=== PATIENT | female | born 1980 | race Caucasian/White ===

== ENCOUNTER 2018-04-04 14:37 | Emergency (ER) | payer OTHER ==
[~2018-04-04] VITALS: Ht 175.3 cm; Wt 58.1 kg
[~2018-04-04 14:37] MED LIST: ASPIRIN325 PO; GABAPENTIN 100100 MG PO; HYDROCODON-ACE1 EAC7 PO; NAPROSYN500 MG PO; NOHOMEMEDICATIONS; NORCO 5-325 TA1 EACH PO; OXYCODONE HCL 55 MG PO; OXYCONTIN10 M1 PO; PRENATAL; TOBREX3.5 GM OP
[2018-04-04] MEDS ORDERED: ALEVE220 MG PO (14:46)
[2018-04-04 15:17] LABS: ABSOLUTE EOSINOPHILS 0.1 thou/uL (0.0-0.7); ABSOLUTE LYMPHOCYTES 1.8 thou/uL (0.8-5.3); ABSOLUTE MONOCYTES 0.4 thou/uL (0.0-1.2); ABSOLUTE NEUTROPHILS 4.2 thou/uL (1.6-8.1); BASOPHILS 0.3 %; EOSINOPHILS 1.2 %; HEMATOCRIT 40.4 % (37.0-47.0); HEMOGLOBIN 13.6 gm/dL (12.0-15.0); LYMPHOCYTES 27.1 %; MCH 32.3 pg (26.0-34.0); MCHC 33.7 g/dL (28.0-37.0); MCV 95.8 fL (80.0-100.0); MONOCYTES 6.5 %; MPV 9.8 fl. (7.2-11.1); NUCLEATED RBCS 0 /100WBC; PLATELET COUNT* 283 thou/uL (150-400); POLYS 64.9 %; RBC 4.22 mil/uL (4.20-5.00); RDW-CV 13.1 % (10.5-14.5); WBC 6.5 thou/uL (4.0-11.0)
[2018-04-04 15:37] LABS: ANION GAP 12 mmol/L (7-16); BUN 12 mg/dL (7-18); CALCIUM 9.1 mg/dL (8.5-10.1); CHLORIDE 98 mmol/L (98-107); CO2 29 mmol/L (21-32); CREATININE 0.7 mg/dL (0.6-1.3); GLUCOSE 102 mg/dL (70-99); POTASSIUM 3.3 mmol/L (3.5-5.1); SODIUM 139 mmol/L (136-145)
[2018-04-04 15:47] LABS: ALBUMIN 4.7 g/dL (3.4-5.0); ALKALINE PHOSPHATASE 63 U/L (46-116); SGOT 21 U/L (15-37); SGPT 28 U/L (30-65); TOTAL BILIRUBIN 0.4 mg/dL (<0.1-1.0); TOTAL PROTEIN 8.1 g/dL (6.4-8.2); TROPONIN-I LEVEL <0.06 ng/mL (<0.06)
[2018-04-04 16:01] LABS: URINE BILIRUBIN NEGATIVE (Negative); URINE BLOOD NEGATIVE (Negative); URINE CLARITY CLEAR; URINE COLOR STRAW; URINE GLUCOSE-RANDOM NEGATIVE (Negative); URINE KETONES NEGATIVE (Negative); URINE LEUKOCYTES-REFLEX NEGATIVE (Negative); URINE NITRITE-REFLEX NEGATIVE (Negative); URINE PROTEIN NEGATIVE (Negative); URINE SPECIFIC GRAVITY >= 1.030 (1.005-1.030); URINE UROBILINOGEN 0.2 E.U./dl (0.2-1.0)
[2018-04-04 16:07] LABS: AMP/METHAMP Negative (Negative); BARBITURATES Negative (Negative); BENZODIAZEPINES Negative (Negative); COCAINE Negative (Negative); METHADONE Negative (Negative); OPIATES POSITIVE (Negative); PCP POSITIVE (Negative); THC Negative (Negative)
[2018-04-04 17:14] VITALS: BP 126/87
--- NOTE | 2018-04-05 12:44 | EKG ---
[place] [address] ELECTROCARDIOGRAM REPORT Name: TIMOTHY RODRÍGUEZ Room: [facility]#: [id number] Admission: 04/04/18 Attend Phys: Discharge: 04/04/18 Date of : 84 Report #: [id number] THIS REPORT FOR: //name// [facility] ED Test Date: 2018-04-04 Test Time: 15:17:10 Pat Name: TIMOTHY RODRÍGUEZ Department: Room: Gender: F Registration Clerk: Zurdo MITCHELL : 1980 Requested By: Aries Hastings Order Number: [id number] MD: Heath Wood Measurements Intervals [place] Rate: 101 P: 65 RI: 168 QRS: 43 QRSD: 97 T: 30 QT: 339 QTc: 440 Interpretive Statements Sinus tachycardia Compared to ECG 11/20/2014 09:57:49 Sinus rhythm no longer present Sinus arrhythmia no longer present Electronically Signed On 04-05-2018 12:44:51 BUSINESS OPERATIONS COORDINATOR by Heath Wood [email or web address] <ELECTRONICALLY SIGNED> By: Heath Wood MD, [facility] 04/05/18 1244 D: [id number] Heath Wood MD, FACC /EPI
== END 2018-04-04 17:14 | disposition home or self-care (01) ==
LOC: M.ERS 14:37
PROVIDERS: Emergency Medicine Emergency Medical Services
DX: R56.9 Unspecified convulsions (principal); Z88.0 Allergy status to penicillin; Z90.710 Acquired absence of both cervix and uterus; Z96.653 Presence of artificial knee joint, bilateral

== ENCOUNTER → 2018-04-30 | Outpatient (CLI) | payer OTHER ==
[~2018-04-30] MED LIST changes: +ALEVE220 MG PO
[2018-04-30 10:07] LABS: HEMATOCRIT 41.2 % (37.0-47.0); MCH 32.3 pg (26.0-34.0); MCHC 33.9 g/dL (28.0-37.0); MCV 95.2 fL (80.0-100.0); MPV 9.4 fl. (7.2-11.1); RBC 4.32 mil/uL (4.20-5.00); RDW-CV 12.6 % (10.5-14.5); WBC 6.4 thou/uL (4.0-11.0)
[2018-04-30 10:20] LABS: ALBUMIN 4.7 g/dL (3.4-5.0); CREATININE 0.6 mg/dL (0.6-1.3); POTASSIUM 3.9 mmol/L (3.5-5.1); TOTAL BILIRUBIN 0.4 mg/dL (<0.1-1.0); TOTAL PROTEIN 7.7 g/dL (6.4-8.2)
== END ==
LOC: M.LAB 09:39
PROVIDERS: Anesthesiology
DX: Z01.818 Encounter for other preprocedural examination (principal); Z96.652 Presence of left artificial knee joint

== ENCOUNTER → 2018-05-05 | Outpatient (CLI) | payer OTHER | LOC: M.MRI 16:46 | DX: M17.12 Unilateral primary osteoarthritis, left knee (principal); M24.10 Other articular cartilage disorders, unspecified site ==

== ENCOUNTER → 2019-12-20 | Outpatient (CLI) | payer OTHER | LOC: M.CT 07:57 | PROVIDERS: ATTEND Nurse Practitioner Family | DX: I31.3 Pericardial effusion (noninflammatory) (principal); R19.04 Left lower quadrant abdominal swelling, mass and lump ==